=== PATIENT | male | born 1960 | race Caucasian/White ===

== ENCOUNTER → 2022-04-14 | Outpatient (CLI) | payer MEDICARE ==
--- NOTE | 2022-04-14 16:18 | Diagnostic Imaging Report ---
CT CHEST WO TECHNIQUE: Multiple contiguous axial images were obtained through the chest without the use of intravenous contrast. All CT scans use one or more of the following dose optimizing techniques: automated exposure control, MA and/or KvP adjustment based on a patient size and exam type, or iterative reconstruction. INDICATION: Sarcoidosis, hypoxia COMPARISON: None available FINDINGS: Lungs and airway: No abnormality of the trachea. There is bilateral peribronchial reticulations with traction bronchiectasis that have an upper lobe predominance. In the right upper lobe, there is a small region of honeycombing. No suspicious pulmonary nodules. Pleura: No pleural effusion or pneumothorax. Heart and mediastinum: Thyroid is normal. No supraclavicular or axillary lymphadenopathy. There are a few subcentimeter mediastinal lymph nodes that are not enlarged. No hilar lymphadenopathy is appreciated by noncontrast imaging. Heart is normal in size without pericardial effusion. Severe coronary artery calcification. Upper abdomen: Diffuse hypoattenuation of the liver suggests hepatic steatosis. There is suggestion of nodularity to the liver surface raising the possibility of cirrhosis, as well. Musculoskeletal: No worrisome focal osseous lesions. IMPRESSION: 1. 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 2. No lymphadenopathy. 3. Hepatic steatosis with potential underlying cirrhosis. Dictated by: Dictated on workstation # [id number]
== END ==
LOC: RAD FS 12:25
PROVIDERS: ATTEND Nurse Practitioner
DX: D86.9 Sarcoidosis, unspecified (principal); K76.0 Fatty (change of) liver, not elsewhere classified; Z99.81 Dependence on supplemental oxygen
CPT/HCPCS: 71250

== ENCOUNTER → 2022-04-30 | Outpatient (CLI) | payer MEDICARE | LOC: CARDFS 11:29 | PROVIDERS: ATTEND Nurse Practitioner Family | DX: D86.9 Sarcoidosis, unspecified (principal); I34.8 Other nonrheumatic mitral valve disorders; F17.200 Nicotine dependence, unspecified, uncomplicated | CPT/HCPCS: 93306 ==

== ENCOUNTER → 2022-05-21 | Outpatient (CLI) | payer MEDICARE ==
[~2022-05-21] MED LIST: ASPI-1238 PO; FLUT1BLS IH; GABA300C PO; IBUP-2185 PO; MELO15TA39 PO; META800T PO; NAPR-1071 PO; OXC5T PO; ROSU10TA28 PO; TRAM100T34 PO; TRAM50TA3 PO; UMEC62.5 IH
== END ==
LOC: ORTHO 02:30
PROVIDERS: ATTEND Orthopaedic Surgery
DX: M16.12 Unilateral primary osteoarthritis, left hip (principal)

== ENCOUNTER → 2022-05-25 | Outpatient (CLI) | payer MEDICARE ==
--- NOTE | 2022-05-25 16:34 | Diagnostic Imaging Report ---
INDICATION: Left hip pain and arthritis. TECHNIQUE/COMPARISON: AP and frog-leg views of the left hip were obtained with comparison made to the study of 05/19/2022 from [facility] in [facility] FINDINGS: Marked narrowing of the left hip joint space is noted, most pronounced in the weightbearing portion, with subchondral sclerosis and mild marginal spurring. No fracture is seen. IMPRESSION: Advanced left hip osteoarthritis without acute osseous abnormality. Dictated by: Dictated on workstation # [id number]
--- NOTE | 2022-05-25 18:43 | Diagnostic Imaging Report ---
INDICATION: Presurgical evaluation COMPARISON: 04/14/2022 TECHNIQUE: Two radiographs of the chest dated 05/25/2022. FINDINGS: The cardiac silhouette is mildly enlarged. Mild central pulmonary vascular congestion. Diffuse interstitial opacities are noted throughout the lungs bilaterally, greatest within the right upper and left lower lung. These opacities have slightly worsened since the prior examination. No significant pleural effusion. No pneumothorax. Scattered osseous degenerative changes without acute osseous abnormality. IMPRESSION: Significant diffuse interstitial opacities, favored to relate to chronic interstitial lung changes and fibrosis. However, some regions appear slightly worsened, particularly within the right upper and lower lung, which may relate to superimposed infiltrate versus worsening fibrosis. Cardiac silhouette remains mildly enlarged. Dictated by: Dictated on workstation # [id number]
== END ==
LOC: RAD 14:13
PROVIDERS: ATTEND Orthopaedic Surgery
DX: M16.12 Unilateral primary osteoarthritis, left hip (principal); R91.8 Other nonspecific abnormal finding of lung field
CPT/HCPCS: 71046; 73502

== ENCOUNTER → 2022-05-25 | Outpatient (CLI) | payer MEDICARE ==
[~2022-05-25] MED LIST changes: -ASPI-1238 PO; -FLUT1BLS IH; -GABA300C PO; -IBUP-2185 PO; -MELO15TA39 PO; -META800T PO; -NAPR-1071 PO; -OXC5T PO; -ROSU10TA28 PO; +RT-ALBUTEROL SULF 2.5 MG/3 ML PRE-MIX VIAL INH ONE; -TRAM100T34 PO; -TRAM50TA3 PO; -UMEC62.5 IH
== END ==
LOC: RT 13:00
PROVIDERS: ATTEND Nurse Practitioner Family
DX: J84.10 Pulmonary fibrosis, unspecified (principal); D86.9 Sarcoidosis, unspecified; R93.89 Abnormal findings on diagnostic imaging of other specified body structures; Z99.81 Dependence on supplemental oxygen
CPT/HCPCS: 94060; 94726; 94729

== ENCOUNTER → 2022-05-26 | Outpatient (CLI) | payer MEDICARE ==
[~2022-05-26] MED LIST changes: +FLUT1BLS IH; +GABA300C PO; +MELO15TA39 PO; +NAPR-1071 PO; +ROSU10TA28 PO; -RT-ALBUTEROL SULF 2.5 MG/3 ML PRE-MIX VIAL INH ONE; +TRAM100T34 PO; +UMEC62.5 IH
[2022-05-26 12:46] LABS: BILIRUBIN,URINE NEGATIVE (NEGATIVE); CLARITY,URINE CLEAR; COLOR,URINE YELLOW; GLUCOSE, URINE (UA) NEGATIVE (NEGATIVE); KETONES,URINE TRACE (NEGATIVE); LEUKOCYTE ESTERASE ,URINE NEGATIVE (NEGATIVE); NITRITE,URINE NEGATIVE (NEGATIVE); PH,URINE 5.5 (5-9); PROTEIN,URINE 3+ (NEGATIVE)
[2022-05-26 12:48] LABS: BASOPHILS # (AUTO) 0.1 10^3/uL (0.0-0.1); BASOPHILS % (AUTO) 1 % (0-10); EOSINOPHILS # (AUTO) 0.2 10^3/uL (0.0-0.3); EOSINOPHILS % (AUTO) 2 % (0-10); HEMATOCRIT 54 % (40-54); HEMOGLOBIN 18.4 g/dL (13.3-17.7); LYMPHOCYTES # (AUTO) 1.2 10^3/uL (1.0-4.0); LYMPHOCYTES % (AUTO) 13 % (12-44); MEAN CORPUSCULAR HEMOGLOBIN 35 pg (25-34); MEAN CORPUSCULAR HGB CONC 34 g/dL (32-36); MEAN CORPUSCULAR VOLUME 102 fL (80-99); MEAN PLATELET VOLUME 10.4 fL (9.0-12.2); MONOCYTES # (AUTO) 0.8 10^3/uL (0.0-1.0); MONOCYTES % (AUTO) 9 % (0-12); NEUTROPHILS # (AUTO) 6.8 10^3/uL (1.8-7.8); NEUTROPHILS % (AUTO) 75 % (42-75); PLATELET COUNT 148 10^3/uL (130-400)
[2022-05-26 13:00] LABS: BACTERIA,URINE NEGATIVE /HPF
[2022-05-26 13:08] LABS: CALCIUM 9.3 MG/DL (8.5-10.1); CREATININE SERUM 0.68 MG/DL (0.60-1.30); INR 0.9 (0.8-1.4); POTASSIUM 4.1 MMOL/L (3.6-5.0); PROTHROMBIN TIME PATIENT 12.7 SEC (12.2-14.7)
== END ==
LOC: LAB 12:21
PROVIDERS: ATTEND Orthopaedic Surgery
DX: Z01.89 Encounter for other specified special examinations (principal)
CPT/HCPCS: 36415; 80048; 81000; 85025; 85610; 85730

== ENCOUNTER 2022-05-29 05:19 | Outpatient (CLI) | payer MEDICARE ==
[~2022-05-29] VITALS: Ht 179 cm; Wt 98.0 kg
[2022-05-29] MEDS ORDERED: GABA300C PO (09:05)
[2022-05-29] MEDS ORDERED: ROSU10TA28 PO (09:05)
[2022-05-29] MEDS ORDERED: FLUT1BLS IH (09:05)
[2022-05-29] MEDS ORDERED: TRAM100T34 PO (09:05)
[2022-05-29] MEDS ORDERED: MELO15TA39 PO (09:05)
[2022-05-29] MEDS ORDERED: NAPR-1071 PO (09:05)
[2022-05-29] MEDS ORDERED: UMEC62.5 IH (09:05)
== END 2022-05-29 09:39 ==
LOC: PREOP 05:19
PROVIDERS: ATTEND Orthopaedic Surgery
DX: Z01.818 Encounter for other preprocedural examination (principal)

== ENCOUNTER 2022-06-08 10:11 | Day surgery (SDC) | payer MEDICARE ==
[~2022-06-08] VITALS: Ht 179 cm; Wt 98.0 kg
[2022-06-08] VITALS (9 sets, daily range): BP systolic 131–157; BP diastolic 69–100
[2022-06-08] MEDS ORDERED: SODIUM CHLORIDE 0.9% IRRIGATIO 150 ML, TRANEXAMIC ACID INJECTION 3,000 MG IR ONE ×2 (10:30)
[2022-06-08] MEDS ORDERED: ceFAZolin INJECTION 2,000 MG in NS (IVPB) 50 ML IV ONE (10:30)
[2022-06-08] MEDS ORDERED: RT-ALBUTEROL SULF 2.5 MG/3 ML PRE-MIX VIAL INH ONE (11:00)
[2022-06-08] MEDS: LACTATED RINGERS 1,000 ML IV PRN ×2 (11:03→12:51)
[2022-06-08] MEDS ORDERED: proPOfol 200 MG/20 ML (DIPRIVAN) VIAL IV ONE ×2 (11:13→14:16)
[2022-06-08] MEDS ORDERED: MIDAZOLAM 2 MG/2 ML (VERSED) VIAL ONE (11:13)
[2022-06-08] MEDS ORDERED: LIDOCAINE PF 2% 5 ML (XYLOCAINE) VIAL ONE (11:13)
[2022-06-08] MEDS ORDERED: fentaNYL INJ 100 MCG/2 ML AMP ONE ×2 (11:13→14:35)
[2022-06-08] MEDS ORDERED: ROCURONIUM 10 MG/ML 5 ML SYRINGE IV ONE (11:13)
[2022-06-08] MEDS ORDERED: ONDANSETRON 4 MG/2 ML (SDV) Z0FRAN ONE (11:13)
[2022-06-08] MEDS ORDERED: HYDROmorphone 2 MG/ML VIAL (DILAUDID) ONE (12:38)
[2022-06-08] MEDS ORDERED: NEOSTIGMINE (BLOXIVERZ ) 1 MG/1ML 10 ML VIAL ONE (13:53)
[2022-06-08] MEDS ORDERED: GLYCOPYRROLATE 0.2 MG/ML (ROBINUL) 2 ML VIAL ONE (13:53)
[2022-06-08] MEDS ORDERED: ROPIVACAINE 5MG/ML 30ML VIAL ONE (14:16)
--- NOTE | 2022-06-08 14:22 | Operative Report - Ortho ---
Operative Report Surgeon (s)/Beekeeper Farmer (s) Surgeon MEHNAZ LANGE MD Beekeeper Farmer n/a Pre-Operative Diagnosis LEFT HIP OSTEOARTHRITIS Post-Operative Diagnosis same Operative Report Date of Procedure: Jun 08, 2022 Name of Procedure Performed: Left Total Hip Arthroplasty Description & Findings After obtaining informed consent and marking the patient in the preoperative holding area, the patient did receive antibiotics and was taken to the operating room. General anesthesia was induced and patient was positioned in the lateral decubitus position with the left side up. Left lower extremity was prepped and draped in the usual sterile fashion. Surgical timeout was taken. Posterolateral approach was utilized. Capsule and external rotators were taken down in one layer. Hip was dislocated without difficulty. Femoral neck ost eotomy was performed and femoral head was removed. Acetabulum was exposed. Labrum and soft tissue was removed from the acetabulum. Sequential reaming was began beginning with a 50 mm reamer and reaming to a 56 mm. 56 mm trial was placed and had good fit. Trial was removed and the acetabulum was lavaged with normal saline; a 56 mm cup was impacted into place and had excellent press fit. A trial line was put into place. Attention was turned to the femoral side, a [employer] cutter osteotome was used to removed bone near the greater trochanter. Canal finder was inserted followed by the lateralizing reamer. Sequential broaching was began with a 0 and was broached to a 6. Trial 132 degree neck and neutral 36 mm head were put into place. The hip was stable in position of sleep, and stable in flexion and internal rotation. This was accepted. Hip was dislocated. Trial components we re removed and the canal was irrigated. Acetabulum was exposed and trial liner was removed. Polyethylene liner was impacted into place and locking mechanism was checked. A size 6 Accolade II was impacted into place and set at the same level as the broach. A +2.5 36 mm trial was found to improve stability. A +2.5 36 mm ceramic head was impacted onto the peace taper of the stem. Hip was once again located and found to have stability in position of sleep as well as flexion and internal rotation. Dilute betadine soak was performed. Hip was irrigated. Tranexamic acid was applied for hemostasis. The fascial layer was closed with #2 StrataFix. The subcutaneous layer was closed with 2-0 Vicryl. Skin was closed with sabiha. Wound was dressed with xeroform, 4x4s, ABD, and tape. Patient was placed in abduction pillow and transferred to his hospital bed without difficulty and was stable to the recovery room. Anesthesia Type General Estimated Blood Loss 400 mL Specimen(s) collected/removed None MEHNAZ LANGE MD Jun 08, 2022 14:22
--- NOTE | 2022-06-08 14:23 | Progress Note-Pre Operative ---
Pre-Operative Progress Note Date of Available H&P: May 21, 2022 Date H&P Reviewed: Jun 08, 2022 Time H&P Reviewed: 11:50 History & Physical: H&P Reviewed, Patient Examed, No changes noted Pre-Operative Diagnosis: Left Hip Osteoarthritis MEHNAZ LANGE MD Jun 08, 2022 14:23
[2022-06-08] MEDS ORDERED: ceFAZolin INJECTION 2,000 MG in NS (IVPB) 50 ML IV SCH (14:30)
[2022-06-08] MEDS ORDERED: ACETAMINOPHEN 500 MG TAB (TYLENOL) PO PRN ×3 (14:30→17:30)
[2022-06-08] MEDS ORDERED: UMECLIDINIUM BROMIDE (INCRUSE ELLIPTA) 7'S IH SCH (14:30)
[2022-06-08] MEDS ORDERED: BISACODYL 5 MG (DULCOLAX) TABLET PO PRN (14:30)
[2022-06-08] MEDS ORDERED: MILK OF MAGNESIA 400 MG/5 ML 30 ML UDC PO PRN (14:30)
[2022-06-08] MEDS ORDERED: FLUTICASONE/VILANTEROL 200 MCG 14'S (BREO) IH SCH (14:30)
[2022-06-08] MEDS ORDERED: ONDANSETRON 4 MG/2 ML (SDV) Z0FRAN IV PRN (14:30)
[2022-06-08] MEDS ORDERED: ONDANSETRON 4 MG/2 ML (SDV) Z0FRAN IVP PRN (14:45)
[2022-06-08] MEDS ORDERED: HYDROmorphone 2 MG/ML VIAL (DILAUDID) IV ONE (14:45)
[2022-06-08] MEDS ORDERED: fentaNYL INJ 100 MCG/2 ML AMP IVP ONE (14:45)
[2022-06-08] MEDS ORDERED: SEVOFLURANE (ULTANE) 15 ML INHAL SOLN ONE (14:56)
--- NOTE | 2022-06-08 15:23 | Physical Therapy Progress Note ---
Therapy Progress Note Patient not available to participate with PT at this time. PT to evaluate patient in [facility] PT Jun 08, 2022 15:23
[2022-06-08] MEDS: NS IV 1000 ML 1,000 ML IV SCH ×2 (16:42→23:02)
--- NOTE | 2022-06-08 17:18 | Diagnostic Imaging Report ---
INDICATION: Post operative check. EXAMINATION: Pelvis on 06/08/2022, 2 views. FINDINGS: There is a total hip arthroplasty on the left which appears well aligned. Overlying skin sabiha are noted with subcutaneous air, consistent with recent surgery. There is no acute osseous abnormality. A Hairston catheter is incidentally noted. IMPRESSION: Uncomplicated expected post operative findings. Dictated by: Dictated on workstation # [id number]
[2022-06-08] MEDS ORDERED: ACETAMINOPHEN 500 MG TAB (TYLENOL) ONE (17:20)
[2022-06-08] MEDS: ASPIRIN E.C. 81 MG (ECOTRIN) TAB PO SCH (17:28)
[2022-06-08] MEDS: CELECOXIB 100 MG (CeleBREX) CAP PO SCH (20:13)
[2022-06-08] MEDS: ceFAZolin INJECTION 2,000 MG in NS (IVPB) 50 ML IV SCH (20:15)
[2022-06-08] MEDS: DOCUSATE SODIUM 100 MG (COLACE) CAP PO SCH (22:41)
[2022-06-09 00:07] VITALS: BP 127/76
[2022-06-09] MEDS: ceFAZolin INJECTION 2,000 MG in NS (IVPB) 50 ML IV SCH (04:08)
[2022-06-09 04:10] VITALS: BP 117/79
[2022-06-09 06:03] LABS: HEMOGLOBIN 16.4 g/dL (13.3-17.7)
[2022-06-09] MEDS: MULTIVIT W/MINERALS TAB (THERAGRAN M) PO SCH (06:10)
[2022-06-09] MEDS: NS IV 1000 ML 1,000 ML IV SCH (06:11)
[2022-06-09] MEDS: UMECLIDINIUM BROMIDE (INCRUSE ELLIPTA) 7'S IH SCH (07:13)
[2022-06-09] MEDS: RT--FLUTICASONE/SALMETEROL 232-14 (AIRDUO RespiCLICK) IH SCH ×2 (07:13→21:42)
--- NOTE | 2022-06-09 08:32 | Progress Note - Ortho ---
Progress Note Subjective Date of Exam 06/09/22 Chief Complaint POD #1 L ALFREDITO HPI/Events since last exam doing well, no specific concerns Review of Systems - Allergies: Coded Allergies: codeine (Unverified Adverse Reaction, Unknown, Vomiting, 05/25/22) morphine (Unverified Adverse Reaction, Unknown, Vomiting, 05/25/22) Home Meds Reported Medications Tramadol HCl (Tramadol HCl ER) 100 Mg Tab.er.24h, 200 MG PO DAILY, TAB 05/29/22 Rosuvastatin Calcium (Rosuvastatin Calcium) 10 Mg Tablet, 10 MG PO DAILY, TAB 05/29/22 Naproxen (Naprosyn) 500 Mg Tablet, 500 MG PO UD, TAB 05/29/22 Meloxicam (Meloxicam) 15 Mg Tablet, 15 MG PO UD, TAB 05/29/22 Umeclidinium Elton (Incruse Ellipta) 62.5 Mcg/Actuation Blst.w.dev, 62.5 MCG IH UD 05/29/22 Gabapentin (Neurontin) 300 Mg Capsule, 300 MG PO UD, CAP 05/29/22 Fluticasone/Vilanterol (Breo Ellipta 200-25 Mcg INH) 200 Mcg-25 Mcg/Dose Blst.w.dev, 1 EACH IH UD 05/29/22 Objective Exam L Leg: Dressing C/D/I, +DF of ankle, no s/s of DVT Vital Signs Vital Signs Date Time Temp Pulse Resp B/P (MAP) Pulse Ox O2 Delivery O2 Flow Rate FiO2 06/09/22 08:13 Room Air 06/09/22 08:13 Room Air 06/09/22 04:10 36.8 79 18 117/79 (92) 98 Nasal Cannula 5.00 06/09/22 00:07 36.0 87 20 127/76 (93) 97 Nasal Cannula 5.00 06/08/22 21:00 Nasal Cannula 3.00 06/08/22 20:24 36.4 84 20 131/76 (94) 94 Nasal Cannula 4.00 06/08/22 16:43 35.9 97 20 143/92 (109) 90 Nasal Cannula 4.00 06/08/22 15:55 94 Nasal Cannula 3.00 06/08/22 15:20 Nasal Cannula 3.00 06/08/22 15:10 36.4 20 157/88 (111) 94 Nasal Cannula 3.00 06/08/22 15:05 OxyMask 3.00 06/08/22 15:00 20 155/69 (97) 92 OxyMask 3.00 06/08/22 14:50 20 142/81 (101) 92 OxyMask 3.00 06/08/22 14:50 OxyMask 3.00 06/08/22 14:40 20 148/97 (114) 94 OxyMask 4.00 06/08/22 14:35 OxyMask 6.00 06/08/22 14:30 18 157/100 (119) 95 OxyMask 6.00 06/08/22 14:20 36.6 16 131/82 (98) 99 OxyMask 8.00 06/08/22 14:20 OxyMask 8.00 06/08/22 11:07 Room Air 06/08/22 10:35 36.8 91 18 137/81 (99) 95 Room Air I & O 06/09/22 07:00 Intake Total 4650 ml Output Total 1450 ml Balance 3200 ml Lab Results Laboratory Tests 06/09/22 05:54: Hemoglobin 16.4, Hematocrit 49 Imaging Postop AP pelvis was reviewed and demonstrated left total hip arthroplasty with components in good position and no complication Assessment and Plan Assessment Left Hip Primary OA s/p L ALFREDITO Problem List Left Hip Primary OA s/p L ALFREDITO Plan PT/OT DVT Prophylaxis Home with home health tomorrow Final Diagonsis Left Hip Primary OA s/p L ALFREDITO Level of the visit: Level 3 (global) MEHNAZ LANGE MD Jun 09, 2022 08:32
[2022-06-09 08:33] VITALS: BP 128/65
[2022-06-09] MEDS: ROSUVASTATIN 10 MG (CRESTOR) TABLET PO SCH (08:55)
[2022-06-09] MEDS: CELECOXIB 100 MG (CeleBREX) CAP PO SCH ×2 (08:55→19:10)
[2022-06-09] MEDS: DOCUSATE SODIUM 100 MG (COLACE) CAP PO SCH ×2 (08:55→19:14)
[2022-06-09] MEDS: ASPIRIN E.C. 81 MG (ECOTRIN) TAB PO SCH ×2 (08:55→18:23)
[2022-06-09] MEDS: HYDROmorphone 2 MG/ML VIAL (DILAUDID) IV PRN ×2 (09:03→19:22)
[2022-06-09] MEDS ORDERED: TRAM50TA3 PO (09:12)
[2022-06-09] MEDS ORDERED: IBUP-2185 PO (09:12)
[2022-06-09] MEDS ORDERED: ASPI-1238 PO (09:12)
[2022-06-09] MEDS ORDERED: META800T PO (09:12)
--- NOTE | 2022-06-09 09:59 | Anesthesia-General Post-Op ---
General Patient Condition Mental Status/LOC: Same as Preop Cardiovascular: Satisfactory Nausea/Vomiting: Absent Respiratory: Satisfactory Pain: Controlled Complications: Absent Post Op Complications Complications None Follow Up Care/Instructions Patient Instructions None needed. Anesthesia/Patient Condition Patient Condition Patient is doing well, no complaints, stable vital signs, no apparent adverse anesthesia problems. No complications reported per nursing. JAMES GREWAL CRNA Jun 09, 2022 09:59
--- NOTE | 2022-06-09 10:55 | Occupational Therapy Eval ---
OT Evaluation-General/PLF Medical Diagnosis Admission Date Jun 08, 2022 at 10:11 Medical Diagnosis: L ALFREDITO Onset Date: Jun 08, 2022 Therapy Diagnosis Therapy Diagnosis: decreased ADL status Precautions Precautions/Isolations: Standard Precautions Comments L hip precautions Weight Bear Status Weight Bearing Restriction: Weight Bearing/Tolerated Referral Physician: Addis Referral Reason: Evaluation/Treatment Medical History Current History s/p L ALFREDITO 06/09/22 Social History Home: Single Level Current Living Status: Spouse ADL-Prior Level of Function SCALE: Activities may be completed with or without assistive devices. 2-Vjtrecrcvs-zspjmie completes the activity by him/herself with no assistance from a helper. 5-Set-up or Clean-up Assistance-helper sets up or cleans up; patient completes activity. [place] assists only prior to or following the activity. 4-Supervision or Touching Assistance-helper provides verbal cues and/or touching/steadying and/or contact guard assistance as patient completes activity . Assistance may be provided throughout the activity or intermittently. 3-Partial/Moderate Assistance-helper does LESS THAN HALF the effort. [place] lifts, holds or supports trunk or limbs, but provides less than half the effort. 2-Substantial/Maximal Assistance-helper does MORE THAN HALF the effort. [place] lifts or holds trunk or limbs and provides more than half the effort. 9-Oiofrkqrs-qyavxf does ALL the effort. Patient does none of the effort to complete the activity. Or, the assistance of 2 or more helpers is required for the patient to complete the activity. If activity was not attempted, code reason: 7-Patient Refused. 9-Not Applicable-not attempted and the patient did not perform the activity before the current illness, exacerbation or injury. 10-Not Attempted due to Environmental Limitations-(lack of equipment, weather restraints, etc.). 88-Not Attempted due to Medical Conditions or Safety Concerns. ADL PLOF Comments Pt reports IND with ADLs and functional mobility at PLOF Self Care: Independent Functional Cognition: Independent OT Current Status Subjective Pt standing EOB upon OT arrival, agreeable to OT evaluation/tx, Mental Status/Objective Patient Orientation: Person, Place, Time, Situation Attachments: Other-See Comments (RLE prosthesis) Current Upper Extremity ROM WFL Upper Extremity Strength WFL ADL-Treatment Eating (QC): 6 (Per pt report) Oral Hygiene (QC): 6 (Per pt report) Upper Body Dressing (QC): 5 (Per clinical judgment.) Lower Body Dressing (QC): 2 (Pt required assist with threading BLEs due to hip precautions.) On/Off Footwear (QC): 1 (total assist due to hip precautions.) Other Treatments Pt standing EOB, agreeable to OT evaluation/tx. Pt provided information about PLOF and home set up and participated in UE screen. Pt able to recall hip precautions, OT provided education on hip precautions in regards to LE dressing. Pt states his is able to assist him with LE dressing at home, they are both retired. Pt has no concerns with his ability to complete ADLs upon returning home. He declines education on AE education, as he would prefer his to complete for him. Post tx, pt with PT, all needs met. Education OT Patient Education: Correct positioning, Modified ADL techniques, Progress toward Goal/Update tx plan, Purpose of tx/functional activities, Reviewed precautions, Rehab process Teaching Recipient: Patient Teaching Methods: Discussion Response to Teaching: Verbalize Understanding OT Senior Living Goals Senior Living Goals 1=Demonstrate adherence to instructed precautions during ADL tasks. 2=Patient will verbalize/demonstrate understanding of assistive devices/modifications for ADL. 3=Patient will improve strength/tolerance for activity to enable patient to perform ADL's. OT Education/Plan Problem List/Assessment Assessment: No Skilled OT Needs ID'd Pt able to recall hip precautions, and education provided on LE dressing with hip precautions. Pt declined further OT services at this time, states his can assist him at home and he is not interested in learning AE for LE dressing. Pt is at his PLOF with ADLs, except LE dressing due to hip precautions. Pt declined further OT services, d/c from OT at this time. If pt wants further information/education on AE, please send new OT orders. Discharge Recommendations Plan/Recommendations: Discharge/Goals Met Treatment Plan/Plan of Care Patient would benefit from OT for education, treatment and training to promote independence in ADL's, mobility, safety and/or upper extremity function for ADL's. Plan of Care: ADL Retraining Treatment Duration: Jun 09, 2022 Frequency: 1 time per week (eval only) Time/GCodes Start Time: 10:25 Stop Time: 10:35 Total Time Billed (hr/min): 10 Billed Treatment Time 1, VARINDER BAHENA OT Jun 09, 2022 10:55
--- NOTE | 2022-06-09 11:15 | Physical Therapy Evaluation ---
PT Evaluation-General Medical Diagnosis Admission Date Jun 08, 2022 at 10:11 Medical Diagnosis: L ALFREDITO Onset Date: Jun 08, 2022 Therapy Diagnosis Therapy Diagnosis: debility/weakness Precautions Precautions/Isolations: Standard Precautions Weight Bear Status Right Lower Extremity: Right Full Weight Bearing Left Lower Extremity: Left Weight Bearing/Tolerated Referral Physician: Addis Reason for Referral: Evaluation/Treatment Medical History Additional Medical History right BKA [address] (pro[address]hesis in place) Current History s/p elective left THR Reviewed History: Yes Social History Home: Single Level Current Living Status: Spouse Entry Into Home: Level Entry Prior Prior Level of Function SCALE: Activities may be completed with or without assistive devices. 2-Vxfbaqwqhn-rtehysw completes the activity by him/herself with no assistance from a helper. 5-Set-up or Clean-up Assistance-helper sets up or cleans up; patient completes activity. [place] assists only prior to or following the activity. 4-Supervision or Touching Assistance-helper provides verbal cues and/or touching/steadying and/or contact guard assistance as patient completes activity. Assistance may be provided throughout the activity or intermittently. 3-Partial/Moderate Assistance-helper does LESS THAN HALF the effort. [place] lifts, holds or supports trunk or limbs, but provides less than half the effort. 2-Substantial/Maximal Assistance-helper does MORE THAN HALF the effort. [place] lifts or holds trunk or limbs and provides more than half the effort. 3-Hvlajyfjn-hqiytr does ALL the effort. Patient does none of the effort to complete the activity. Or, the assistance of 2 or more helpers is required for the patient to complete the activity. If activity was not attempted, code reason: 7-Patient Refused. 9-Not Applicable-not attempted and the patient did not perform the activity before the current illness, exacerbation or injury. 10-Not Attempted due to Environmental Limitations-(lack of equipment, weather restraints, etc.). 88-Not Attempted due to Medical Conditions or Safety Concerns. Bed Mobility: 6 Transfers (B,C,W/C): 6 Gait: 6 Stairs: 6 Indoor Mobility (Ambulation): Independent Stairs: Independent Prior Devices Use: Other-see list below Prior Device Use: cane PRN PT Evaluation-Current Subjective Patient agrees to PT. Pain Numeric Pain Scale: 3 Location: Left Location Body Site: Hip Pain Description: Acute Objective Patient Orientation: Normal For Age ROM/Strength ROM Lower Extremities left hip precautions/right LE WFL Strength Lower Extremities left LE 4-/5;right LE 4+/5 grossly Integumentary/Posture Bowel Incontinence: No Bladder Incontinence: No Posture WFL Neuromuscular (Tone, Coordination, Reflexes) grossly intact Sensory Vision: Functional Transfers Sit to Lying (QC): 6 Lying to Sitting/Side of Bed(Q: 6 Sit to Stand (QC): 6 Chair/Nja-wd-Dswyx Xfer(QC): 6 Toilet Transfer (QC): 6 Gait Mode of Locomotion: Walk Anticipated Mode of Locomotion: Walk Walk 10 feet (QC): 6 Walk 50 ft with 2 Turns(QC): 6 Walk 150 ft (QC): 6 Distance: >500' Gait Assistive Device: FWW Comments/Gait Description reciprocal pattern Balance Sitting Static: Normal Sitting Dynamic: Normal Standing Static: Normal Standing Dynamic: Normal Assessment/Needs Patient educated on hip precautions earlier on this date with ability to retain and repeat. Patient is currently at independent LOF with all gross motor skills. Patient will utilize spouse to perform dressing lower body due to hip precautions. Patient instructed to ambulate PRN in hallway and to be up in room ad kayla. RN notified. Rehab Potential: Good PT Short Term Goals Short Term Goals Time Frame: Jun 11, 2022 Roll Left & Right: 6 Sit to lyin Lying to sitting on side of be: 6 Sit to stand: 6 Chair/hts-qz-jcurs transfer: 6 Toilet transfer: 6 Walk 10 feet: 6 Walk 50 feet with two turns: 6 Walk 150 feet: 6 PT Plan Treatment/Plan Treatment Plan: Continue Plan of Care Treatment Plan: Education, Functional Activity Luther, Functional Strength, Gait, Therapeutic Exercise Treatment Duration: Jun 11, 2022 Frequency: BID until dismissal Estimated Hrs Per Day: .5 hour per day Patient and/or Family Agrees t: Yes Time Time In: 1035 Time Out: 1102 Total Billed Treatment Time: 27 Total Billed Treatment 1 visit EVModC 15 min FA 12 min [facility]AR SELLERS PT Jun 09, 2022 11:14
[2022-06-09] MEDS: GABAPENTIN 300 MG (NEURONTIN) CAP PO SCH ×2 (11:44→11:52)
[2022-06-09 11:47] VITALS: BP 120/59
--- NOTE | 2022-06-09 14:12 | Physical Therapy Daily Note ---
PT Daily Note-Current Subjective Patient ambulating in hallway independently with FWW. Pain Numeric Pain Scale: 5-Moderate Pain Location: Left Location Body Site: Hip Pain Description: Acute Section J - Health Conditions 1. Rarely or not at all 2. Occasionally 3. Frequently 4. Almost constantly 8. Unable to answer Pain Effect on Sleep: 1 Pain Interference with Therapy: 1 Pain Interference w/Day-to-Day: 1 Transfers SCALE: Activities may be completed with or without assistive devices. 3-Wpawoipozx-stgcako completes the activity by him/herself with no assistance from a helper. 5-Set-up or Clean-up Assistance-helper sets up or cleans up; patient completes activity. [place] assists only prior to or following the activity. 4-Supervision or Touching Assistance-helper provides verbal cues and/or touching/steadying and/or contact guard assistance as patient completes activity. Assistance may be provided throughout the activity or intermittently. 3-Partial/Moderate Assistance-helper does LESS THAN HALF the effort. [place] lifts, holds or supports trunk or limbs, but provides less than half the effort. 2-Substantial/Maximal Assistance-helper does MORE THAN HALF the effort. [place] lifts or holds trunk or limbs and provides more than half the effort. 7-Escixurfv-rxozbq does ALL the effort. Patient does none of the effort to complete the activity. Or, the assistance of 2 or more helpers is required for the patient to complete the activity. If activity was not attempted, code reason: 7-Patient Refused. 9-Not Applicable-not attempted and the patient did not perform the activity before the current illness, exacerbation or injury. 10-Not Attempted due to Environmental Limitations-(lack of equipment, weather restraints, etc.). 88-Not Attempted due to Medical Conditions or Safety Concerns. Sit to Stand (QC): 6 Weight Bearing Right Lower Extremity: Right Full Weight Bearing Left Lower Extremity: Left Weight Bearing/Tolerated Assessment Education with patient on importance of rest and exercise to allow proper healing of left hip. Patient voices understanding. Patient recites hip precautions. Plan dismissal tomorrow after PT. PT Short Term Goals Short Term Goals Time Frame: Jun 11, 2022 Roll Left & Right: 6 Sit to lyin Lying to sitting on side of be: 6 Sit to stand: 6 Chair/nyd-zk-jmhsw transfer: 6 Toilet transfer: 6 Walk 10 feet: 6 Walk 50 feet with two turns: 6 Walk 150 feet: 6 PT Plan Treatment/Plan Treatment Plan: Continue Plan of Care Treatment Plan: Education, Functional Activity Luther, Functional Strength, Gait, Therapeutic Exercise Treatment Duration: Jun 11, 2022 Frequency: BID until dismissal Estimated Hrs Per Day: .5 hour per day Patient and/or Family Agrees t: Yes Time Time In: 1305 Time Out: 1314 Total Billed Treatment Time: 8 Total Billed Treatment 1 visit Educ 8 min [facility] SELLERS PT Jun 09, 2022 14:12
[2022-06-09 15:28] VITALS: BP 134/69
[2022-06-09] MEDS ORDERED: NICOTINE 7 MG (NICODERM) PATCH TD ONE (18:26)
[2022-06-09] MEDS ORDERED: NICOTINE 7 MG (NICODERM) PATCH TD SCH (18:30)
[2022-06-09] MEDS ORDERED: diphenhydrAMINE 25 MG TAB (BENADRYL) PO ONE (18:34)
[2022-06-09] MEDS ORDERED: diphenhydrAMINE 25 MG TAB (BENADRYL) PO NR (18:45)
[2022-06-09 19:25] VITALS: BP 132/72
[2022-06-10 00:44] VITALS: BP 128/75
[2022-06-10 03:49] VITALS: BP 124/79
[2022-06-10] MEDS: MULTIVIT W/MINERALS TAB (THERAGRAN M) PO SCH (05:36)
[2022-06-10 05:52] LABS: HEMOGLOBIN 16.9 g/dL (13.3-17.7)
[2022-06-10 08:00] VITALS: BP 139/87
[2022-06-10] MEDS: ASPIRIN E.C. 81 MG (ECOTRIN) TAB PO SCH (08:18)
[2022-06-10] MEDS: CELECOXIB 100 MG (CeleBREX) CAP PO SCH (08:18)
[2022-06-10] MEDS: GABAPENTIN 300 MG (NEURONTIN) CAP PO SCH (08:18)
[2022-06-10] MEDS: ROSUVASTATIN 10 MG (CRESTOR) TABLET PO SCH (08:18)
[2022-06-10] MEDS: DOCUSATE SODIUM 100 MG (COLACE) CAP PO SCH ×2 (08:18→08:22)
[2022-06-10] MEDS ORDERED: NICOTINE PATCH REMOVAL TP SCH (08:59)
--- NOTE | 2022-06-10 09:51 | Physical Therapy Daily Note ---
PT Daily Note-Current Subjective Pt. has min c/o pain at 4/10 left hip and several questions but feels confident about going home. Pt. hopes to receive home care PT then out pt PT to transition to cane or no device Pain Numeric Pain Scale: 4 Location: Left Location Body Site: Hip Pain Description: Ache Section J - Health Conditions 1. Rarely or not at all 2. Occasionally 3. Frequently 4. Almost constantly 8. Unable to answer Pain Effect on Sleep: 1 Pain Interference with Therapy: 1 Pain Interference w/Day-to-Day: 1 Mental Status Patient Orientation: Normal For Age Attachments: Other-See Comments (prosthesis right BKA) Transfers SCALE: Activities may be completed with or without assistive devices. 1-Lsnkhojydl-vpyrseg completes the activity by him/herself with no assistance from a helper. 5-Set-up or Clean-up Assistance-helper sets up or cleans up; patient completes activity. Barnes assists only prior to or following the activity. 4-Supervision or Touching Assistance-helper provides verbal cues and/or touching/steadying and/or contact guard assistance as patient completes ac tivity. Assistance may be provided throughout the activity or intermittently. 3-Partial/Moderate Assistance-helper does LESS THAN HALF the effort. Barnes lifts, holds or supports trunk or limbs, but provides less than half the effort. 2-Substantial/Maximal Assistance-helper does MORE THAN HALF the effort. Barnes lifts or holds trunk or limbs and provides more than half the effort. 7-Rahrknpni-clbjrd does ALL the effort. Patient does none of the effort to complete the activity. Or, the assistance of 2 or more helpers is required for the patient to complete the activity. If activity was not attempted, code reason: 7-Patient Refused. 9-Not Applicable-not attempted and the patient did not perform the activity before the current illness, exacerbation or injury. 10-Not Attempted due to Environmental Limitations-(lack of equipment, weather restraints, etc.). 88-Not Attempted due to Medical Conditions or Safety Concerns. Roll Left & Right (QC): 6 Sit to Lying (QC): 4 Lying to Sitting/Side of Bed(Q: 6 Sit to Stand (QC): 6 Chair/Yzl-va-Eowtr Xfer(QC): 6 pt. needed min assist to get in to flat bed entering with right side/leg in first, Pts to assist with this until he has mastered it, he is close. Weight Bearing Right Lower Extremity: Right Full Weight Bearing Left Lower Extremity: Left Weight Bearing/Tolerated Gait Training Does the Patient Walk?: Yes Walk 10 feet (QC): 6 Walk 50 ft with 2 Turns(QC): 6 Walk 150 ft (QC): 6 Gait Assistive Device: FWW Stair Training pt. has a ramp but instruction was given for steps Exercises Supine Ex: Ankle pumps, Quad Set, Glut sets, Heel Slides, Short Arc Quads, Scooting, Straight leg raise (assisted), Hip abd/add (left assisted) Supine Reps: 15 Seated Therapy Exercises: Ankle pumps, Sit to stand, Long arc quads Seated Reps: 15 Treatments TRFs, Gait, precautions, therex, education Assessment Current Status: Good Progress meets goals PT Short Term Goals Short Term Goals Time Frame: Jun 11, 2022 Roll Left & Right: 6 Sit to lyin Lying to sitting on side of be: 6 Sit to stand: 6 Chair/tjj-ef-qtwow transfer: 6 Toilet transfer: 6 Walk 10 feet: 6 Walk 50 feet with two turns: 6 Walk 150 feet: 6 PT Plan Treatment/Plan Treatment Plan: Continue Plan of Care Treatment Plan: Education, Functional Activity Luther, Functional Strength, Gait, Therapeutic Exercise Treatment Duration: Jun 11, 2022 Frequency: BID until dismissal Estimated Hrs Per Day: .5 hour per day Patient and/or Family Agrees t: Yes Safety Risks/Education Patient Education: Gait Training, Transfer Techniques, Reviewed Precautions, Correct Positioning, Disease Process, Safety Issues Teaching Recipient: Patient Teaching Methods: Demonstration, Discussion Response to Teaching: Verbalize Understanding, Return Demonstration, Reinforcement Needed Time Time In: 910 Time Out: 944 Total Billed Treatment Time: 34 Total Billed Treatment 1,FA17m,ex17m BHARATH MCKEON LAN/WAN ENGINEER Jun 10, 2022 09:51
[2022-06-10] MEDS: UMECLIDINIUM BROMIDE (INCRUSE ELLIPTA) 7'S IH SCH (10:23)
[2022-06-10] MEDS: RT--FLUTICASONE/SALMETEROL 232-14 (AIRDUO RespiCLICK) IH SCH (10:23)
[2022-06-10] MEDS ORDERED: ASPI-1238 PO (10:30)
[2022-06-10] MEDS ORDERED: OXC5T PO (10:30)
--- NOTE | 2022-06-10 10:32 | Discharge Summary ---
Discharge Summary Hospital Course Hospital Course Date of Admission: Jun 08, 2022 at 10:11 Admission Diagnosis : Left Hip Primary Osteoarthritis Family Physician/Provider: Vesta Dean Aprn Date of Discharge: 06/10/22 Discharge Diagnosis: [ Left Hip Primary Osteoarthritis] Hospital Course: [On 06/08/22, patient underwent left total hip arthroplasty. Postoperatively, admitted to the regular floor. Mechanical DVT prophylaxis was began. Began to mobilize that afternoon. On POD #1, had some difficulty with pain control. Made progress with therapy. Arrangements were made for home health. On POD #2, pain control was improved and was ambulating over 100'. Tolerating a regular diet. Ready for discharge home with home health. ] Labs and Pending Lab Test: Laboratory Tests 06/10/22 05:45: Hemoglobin 16.9, Hematocrit 50 Microbiology 06/08/22 MRSA Screen - Final, Complete MRSA not isolated Home Meds Active Aspirin EC (Aspirin) 81 Mg Tablet.dr 81 Mg PO BID WITH MEALS 35 Days Reported Aspirin EC (Aspirin) 81 Mg Tablet.dr 81 Mg PO DAILY Ibuprofen 200 Mg Capsule 400 Mg PO DAILY PRN Tramadol HCl 50 Mg Tablet 100 Mg PO DAILY TAKES 2 (50NG) TABS Metaxalone 800 Mg Tablet 800 Mg PO DAILY PRN Rosuvastatin Calcium 10 Mg Tablet 10 Mg PO DAILY Meloxicam 15 Mg Tablet 15 Mg PO DAILY Incruse Ellipta (Umeclidinium [place]) 62.5 Mcg/Actuation Blst.w.dev 1 Puff IH DAILY Neurontin (Gabapentin) 300 Mg Capsule 600 Mg PO DAILY TAKES 2 (300MG) CAPS Breo Ellipta 200-25 Mcg INH (Fluticasone/Vilanterol) 200 Mcg-25 Mcg/Dose Blst.w.dev 1 Puff IH DAILY Assessment/Pt Instructions WBAT on left leg. Walker for assist. Posterior hip precautions. Dry dressing daily; keep surgical site dry. Discharge Physical Examination Vital Signs Vital Signs Date Time Temp Pulse Resp B/P (MAP) Pulse Ox O2 Delivery O2 Flow Rate FiO2 06/10/22 10: Room Air 06/10/22 10: 90 06/10/22 08:00 36.6 92 18 139/87 (104) 06/09/22 09:00 4.00 Extremity: Other (Left Hip: Dressing C/D/I, +DF of ankle, no s/s of DVT) Allergies: Coded Allergies: codeine (Unverified Adverse Reaction, Unknown, Vomiting, 05/25/22) morphine (Unverified Adverse Reaction, Unknown, Vomiting, 05/25/22) Discharge Summary Date of Admission Jun 08, 2022 at 10:11 Date of Discharge MEHNAZ LANGE MD Jun 10, 2022 10:32
--- NOTE | 2022-06-10 10:33 | D/C HH Face to Face Order ---
D/C Face to Face Orders Instructions for Patient Via [facility], Patient Instructions/FollowUp: WBAT on left leg. Walker for assist. Posterior hip precautions. Dry dressing daily; keep surgical site dry. F/U in [address] Mancini Physician to follow Patient: Eugene Mancini Discharge Diet for Home: No Restrictions Patient Data-Allergies,Ht & Wt Patient Allergies: Coded Allergies: codeine (Unverified Adverse Reaction, Unknown, Vomiting, 05/25/22) morphine (Unverified Adverse Reaction, Unknown, Vomiting, 05/25/22) Home Health Need/Face to Face Date of Face to Face: Jun 10, 2022 Clinical Findings: Muscle weakness, Pain with ambulation, Unsteady gait I have seen Pt [id number]: Yes Discharged To: Home Diagnosis/Conditions: Left Hip Primary OA s/p ALFREDITO Patient is Homebound due to: Muscle weakness, Pain w/ambulation Homebound Status Due to the above stated illness, injury or surgical procedure (medical condition or diagnosis) and associated clinical findings, the patient is homebound because of his/her inability to leave home except with aid of a supportive device and/or person AND leaving the home requires a considerable and taxing effort or is medically contraindicated. Pt req the following assistanc: Walker Home Health Nursing Orders Home Health Services Order: Physical Therapy-Evaluate & Treat Home Health Infusion Therapy Line Start Date: Jun 08, 2022 Therapy Orders Therapy Specific Orders: Gait training, Increase strength/endurance, Restore ROM Certify Stmt I certify that this patient is under my care and that I, a nurse practitioner or a physician; a case management assistant working with me, had a face to face encounter that - meets the physician face to face encounter requirements with this patient as dated. EUGENE MANCINI MD Jun 10, 2022 10:33
[2022-06-10 13:50] VITALS: BP 139/87
== END 2022-06-10 13:50 | disposition home health service (06) ==
LOC: 4TH 10:11 → UNDOADMIN 10:11 → 4TH 10:11 → SDC 10:11 → 4TH 10:12 → SURG 10:12 → 4TH 15:25 → SURG 15:25 → UNDODISIN 06-10 13:50 → SDC 06-10 13:50
PROVIDERS: ATTEND Orthopaedic Surgery
DX: M16.12 Unilateral primary osteoarthritis, left hip (principal); F17.290 Nicotine dependence, other tobacco product, uncomplicated; E66.9 Obesity, unspecified; Z68.31 Body mass index [BMI] 31.0-31.9, adult; Z89.511 Acquired absence of right leg below knee
CPT/HCPCS: 27130; 72170; 85014 ×2; 85018 ×2; 87081; 93005; 94640 ×3; 94664; 94760; 97110; 97162; 97165; 97530 ×2; C1776 ×4; 36415

== ENCOUNTER → 2022-07-02 | Outpatient (CLI) | payer MEDICARE ==
[~2022-07-02] MED LIST changes: +ASPI-1238 PO; +IBUP-2185 PO; +META800T PO; +OXC5T PO; +TRAM50TA3 PO
== END ==
LOC: ORTHO 15:54
PROVIDERS: ATTEND Orthopaedic Surgery
DX: Z47.89 Encounter for other orthopedic aftercare (principal); E78.00 Pure hypercholesterolemia, unspecified

== ENCOUNTER → 2022-08-13 | Outpatient (CLI) | payer MEDICARE ==
--- NOTE | 2022-08-13 18:56 | Diagnostic Imaging Report ---
INDICATION: Follow-up orthopedic assessment, left total hip arthroplasty. COMPARISON: 05/25/2022 and 06/08/2022. TECHNIQUE: Two radiographs of the left hip are obtained dated 08/13/2022. FINDINGS: Left total hip arthroplasty is again identified appearing stable from the prior examination without evidence of hardware complication. No acute fracture or dislocation. No destructive osseous process. Multiple metallic densities are seen overlying the pelvis and left hip, felt to relate to overlying artifact and clothing. IMPRESSION: Left total hip arthroplasty without hardware complication. Dictated by: Dictated on workstation # [id number]
== END ==
LOC: ORTHO 11:04
PROVIDERS: ATTEND Orthopaedic Surgery
DX: Z47.89 Encounter for other orthopedic aftercare (principal); Z96.642 Presence of left artificial hip joint
CPT/HCPCS: 73502

== ENCOUNTER → 2023-02-23 | Outpatient (CLI) | payer MEDICARE ==
--- NOTE | 2023-02-23 17:39 | Diagnostic Imaging Report ---
Indication: Left hip pain. Time of Exam: 1:48 PM Correlation is made with prior radiograph from 08/13/2022. Postop changes of a total hip arthroplasty are noted. Prosthetic element appear to be in good position without fracture or loosening. Left-sided rami are intact. IMPRESSION: No acute abnormality is detected. Dictated by: Dictated on workstation # [id number]
== END ==
LOC: ORTHO 13:38
PROVIDERS: ATTEND Orthopaedic Surgery
DX: M25.552 Pain in left hip (principal)
CPT/HCPCS: 73502; G0463; 99213

== ENCOUNTER → 2023-03-03 | Outpatient (CLI) | payer MEDICARE ==
--- NOTE | 2023-03-03 14:03 | Diagnostic Imaging Report ---
HISTORY: Pain in the left hip, recent surgery. COMPARISON: Radiographs from 02/23/2023 TECHNIQUE: Ultrasound of the soft tissues of the left hip. FINDINGS/ IMPRESSION: No masses or fluid collections are seen about the left hip soft tissues. Dictated by: Dictated on workstation # [id number]
== END ==
LOC: RAD 09:26
PROVIDERS: ATTEND Orthopaedic Surgery
DX: M70.72 Other bursitis of hip, left hip (principal); Z98.890 Other specified postprocedural states
CPT/HCPCS: 76881

== ENCOUNTER → 2023-06-08 | Outpatient (CLI) | payer MEDICARE ==
--- NOTE | 2023-06-08 12:43 | Diagnostic Imaging Report ---
EXAMINATION: Left hip unilateral 2 or 3 views (w/pelvis when done) HISTORY: PAIN IN LEFT HIP COMPARISON: 02/23/2023 FINDINGS: There is left hip hemiarthroplasty. Components are in near anatomic alignment. No fracture is seen. No dislocation. IMPRESSION: 1. Expected postsurgical changes of a left hip arthroplasty in near anatomic alignment. Dictated by: Dictated on workstation # [id number]
== END ==
LOC: ORTHO 10:13
PROVIDERS: ATTEND Orthopaedic Surgery
DX: M25.552 Pain in left hip (principal); Z96.642 Presence of left artificial hip joint
CPT/HCPCS: 73502; G0463; 99213